=== PATIENT | female | born 1985 | race Caucasian/White ===

== ENCOUNTER 2018-04-08 10:23 | Observation (INO) | payer BC ==
[~2018-04-08 10:23] MED LIST: GLYCOPYRROLATE 1 MG/5 ML SYRINGE ONE; NEOSTIGMINE METHYLSULFATE 10 MG/10 ML VIAL ONE; SUCCINYLCHOLINE CHLORIDE INJ 200 MG/10 ML VIAL ONE; VECURONIUM BROMIDE INJ 10 MG VIAL IV ONE
[2018-04-08] MEDS ORDERED: FENTANYL CITRATE INJ/PF 100 MCG/2 ML AMPUL IV ONE (11:08)
--- NOTE | 2018-04-08 11:08 | ER Document Report ---
ED Medical Screen (RME) - General Chief Complaint: Abdominal Pain Stated Complaint: ABDOMINAL PAIN Time Seen by Provider: 04/08/18 10:59 Mode of Arrival: Ambulatory Information source: Patient Notes: 32-year-old female presents emergency department 3-day history of abdominal pain. She states that it is diffuse located throughout her entire abdomen. She describes it as a bloated sensation. She states that occasionally she will have intermittent sharp and stabbing pain located periumbilically. She states that curling up in a ball helps the pain. She denies any alleviating factors. Patient denies any nausea, vomiting, diarrhea, constipation, dysuria, hematuria , vaginal bleeding, vaginal discharge. Last menstrual period was 1 week ago. Patient went to her primary care physician yesterday and had blood work done. White blood cell count came back elevated. She was told to go to the emergency department for further imaging. I have greeted and performed a rapid initial assessment of this patient. A comprehensive ED assessment and evaluation of the patient, analysis of test results and completion of the medical decision making process will be conducted by additional ED providers. PHYSICAL EXAMINATION: GENERAL: Ill appearing. Bent over in pain. HEAD: Atraumatic, normocephalic. EYES: Pupils equal round extraocular movements intact, conjunctiva are normal. ENT: Nares patent NECK: Normal range of motion LUNGS: No respiratory distress Musculoskeletal: Normal range of motion NEUROLOGICAL: Normal speech, normal gait. PSYCH: Normal mood, normal affect. SKIN: Warm, Dry, normal turgor, no rashes or lesions noted. TRAVEL OUTSIDE OF THE [place] IN LAST 30 DAYS: No - HPI Onset: Other - 3 days - Related Data Allergies/Adverse Reactions: cefaclor [From Ceclor] Allergy (Severe, Verified 04/08/18 10:25) Anaphylaxis Penicillins Allergy (Severe, Verified 04/08/18 10:25) Anaphylaxis Past Medical History - Social History Chew tobacco use (# tins/day): No Frequency of alcohol use: Occasional Drug Abuse: None Endocrine Medical History: Comment Only: Hx Diabetes Mellitus Type 1 - hypoglycemia Renal/ Medical History: Denies: Hx Peritoneal Dialysis - Immunizations Hx Diphtheria, Pertussis, Tetanus Vaccination: Yes Physical Exam - Vital signs Vitals: Temp Pulse Resp BP Pulse Ox 98.4 F 132 H 20 140/103 H 100 04/08/18 10:29 04/08/18 10:29 04/08/18 10:29 04/08/18 10:29 04/08/18 10:29 Course - Vital Signs Vital signs: Temp Pulse Resp BP Pulse Ox 98.4 F 132 H 20 140/103 H 100 04/08/18 10:29 04/08/18 10:29 04/08/18 10:29 04/08/18 10:29 04/08/18 10:29 Doctor's Discharge - Discharge Referrals: KATI CAMPOS MD [Primary Care Provider] - Follow up as needed
[2018-04-08 12:09] LABS: ABSOLUTE BASOPHILS # (AUTO) 0.1 10^3/uL (0.0-0.2); ABSOLUTE EOSINOPHILS # (AUTO) 0.2 10^3/uL (0.0-0.6); ABSOLUTE LYMPHOCYTES (AUTO) 2.1 10^3/uL (0.5-4.7); ABSOLUTE NEUT (AUTO) 11.2 10^3/uL (1.7-8.2); BASOPHILS % (AUTO) 0.5 % (0-2); EOSINOPHILS % (AUTO) 1.7 % (0-6); LYMPHOCYTES % (AUTO) 14.7 % (13-45); MEAN CORPUSCULAR HEMOGLOBIN 34.4 pg (27.0-33.4); MEAN CORPUSCULAR VOLUME 98 fl (80-97); MONOCYTES % (AUTO) 6.6 % (3-13); PLATELET COUNT 339 10^3/uL (150-450); RED BLOOD COUNT 4.37 10^6/uL (3.72-5.28); RED CELL DISTRIBUTION WIDTH 12.5 % (11.5-14.0); SEGMENTED NEUTROPHILS % (AUTO) 76.5 % (42-78); TOTAL CELLS COUNTED % (AUTO) 100 %; WHITE BLOOD COUNT 14.6 10^3/uL (4.0-10.5)
[2018-04-08 12:21] LABS: APPEARANCE,URINE SLIGHTLY-CLOUDY; BILIRUBIN,URINE NEGATIVE (NEGATIVE); COLOR,URINE YELLOW; GLUCOSE, URINE NEGATIVE (NEGATIVE); KETONES,URINE NEGATIVE (NEGATIVE); LEUKOCYTE ESTERASE,URINE NEGATIVE (NEGATIVE); NITRITE,URINE NEGATIVE (NEGATIVE); PROTEIN,URINE 30 mg/dL (NEGATIVE); URINE SPECIFIC GRAVITY 1.025; UROBILINOGEN,URINE NEGATIVE mg/dL (<2.0)
[2018-04-08 12:33] LABS: ALANINE AMINOTRANSFERASE 13 U/L (9-52); ALBUMIN 4.9 g/dL (3.5-5.0); ALKALINE PHOSPHATASE 108 U/L (38-126); ANION GAP 11 (5-19); ASPARTATE AMINO TRANSFERASE 32 U/L (14-36); BILIRUBIN,DIRECT 0.4 mg/dL (0.0-0.4); BILIRUBIN,TOTAL 0.8 mg/dL (0.2-1.3); BLOOD UREA NITROGEN 9 mg/dL (7-20); CARBON DIOXIDE 31 mmol/L (22-30); CHLORIDE 102 mmol/L (98-107); GLUCOSE 78 mg/dL (75-110); LIPASE 59.2 U/L (23-300); POTASSIUM 4.7 mmol/L (3.6-5.0); SODIUM 143.7 mmol/L (137-145)
[2018-04-08] MEDS ORDERED: NORMAL SALINE 1000 ML 1,000 ML IV ONE (14:13)
--- NOTE | 2018-04-08 14:14 | RADIOLOGY REPORT (SQ) ---
EXAM DESCRIPTION: CT ABD/PELVIS WITH IV ONLY COMPLETED DATE/TIME: 04/08/2018 1:51 pm REASON FOR STUDY: abdominal pain COMPARISON: None. TECHNIQUE: CT scan of the abdomen and pelvis performed using helical scanning technique with dynamic intravenous contrast injection. No oral contrast. Images reviewed with lung, soft tissue, and bone windows. Reconstructed coronal and sagittal MPR images reviewed. Delayed images for evaluation of the urinary system also acquired. All images stored on PACS. All CT scanners at this facility use dose modulation, iterative reconstruction, and/or weight based d osing when appropriate to reduce radiation dose to as low as reasonably achievable (ALARA). [facility]: Dose Right [facility]: CareDose [facility]: Dose Right [facility]: Teradose 4D [facility]: Domo Safety CONTRAST TYPE AND DOSE: contrast/concentration: Isovue 350.00 mg/ml; Total Contrast Delivered: 76.0 ml; Total Saline Delivered: 59.0 ml RENAL FUNCTION: GFR > 60. RADIATION DOSE: CT Rad equipment meets quality standard of care and radiation dose reduction techniq ues were employed. CTDIvol: 7.6 - 10.5 mGy. DLP: 936 mGy-cm.. LIMITATIONS: None. FINDINGS: LOWER CHEST: No significant findings. No nodules or infiltrates. LIVER: Normal size. No masses. No dilated ducts. SPLEEN: Normal size. No focal lesions. PANCREAS: No masses. No significant calcifications. No adjacent inflammation or peripancreatic fluid collections. Pancreatic duct not dilated. GALLBLADDER: No identified stones by CT criteria. No inflammatory changes to suggest cholecystitis. ADRENAL GLANDS: No significant masses or asymmetry. RIGHT KIDNEY AND URETER: No solid masses. No significant calcifications. No hydronephrosis or hyd roureter. LEFT KIDNEY AND URETER: No solid masses. No significant calcifications. No hydronephrosis or hydr oureter. AORTA AND VESSELS: No aneurysm. No dissection. Renal arteries, SMA, celiac without stenosis. RETROPERITONEUM: No retroperitoneal adenopathy, hemorrhage or masses. BOWEL AND PERITONEAL CAVITY: Inflammatory changes in the right lower quadrant with suspected dilated appendix series 3, image 60. No free air or ascites. APPENDIX: See above. PELVIS: No mass. No free fluid. Normal bladder. ABDOMINAL WALL: No masses. No hernias. BONES: No significant or acute findings. OTHER: No other significant finding. IMPRESSION: Suspect acute appendicitis. Inflammatory bowel disease considered in the differential. Surgical consultation is recommended. TECHNICAL DOCUMENTATION: JOB ID: [id number] Quality ID # [id number]: Final reports with documentation of one or more dose reduction techniques (e.g., Au tomated exposure control, adjustment of the mA and/or kV according to patient size, use of iterative reconstruction technique) 2010 [employer]- All Rights Reserved Reading location - IP/workstation name: [email or web address] [id number]
[2018-04-08] MEDS ORDERED: ONDANSETRON HCL INJ/PF 4 MG/2 ML SDV IV ONE (14:25)
[2018-04-08] MEDS ORDERED: MORPHINE SULFATE 10 MG/ML INJ IV ONE (14:25)
--- NOTE | 2018-04-08 14:29 | ER Document Report ---
ED General - General Chief Complaint: Abdominal Pain Stated Complaint: ABDOMINAL PAIN Time Seen by Provider: 04/08/18 10:59 Mode of Arrival: Ambulatory Notes: Patient is a 32-year-old female that presents to the emergency department for chief complaint of abdominal pain. Patient states the pain started Thursday, and has been persistent and seemingly worsening over time. The pain is located generally in the middle of the abdomen, but also worse in the right lower quadrant, and they currently rate the pain as a 6 out of 10, and scribed as aching, and constant, and occasionally sharp. They have had associated nausea, without vomiting, denies dysuria or hematuria. Past Medical History: Denies chronic medical conditions Past Surgical History: Nasal surgery Social History: Admits to occasional alcohol use, admits to smoking cigarettes, denies illicit drug use Family History: Reviewed and noncontributory for presenting illness Allergies: Reviewed, see documented allergy list. REVIEW OF SYSTEMS: Unless otherwise stated in this report the patient's positive and negative responses for review of systems for constitutional, eyes, ENT, cardiovascular, respiratory, gastrointestinal, neurological, genitourinary, musculoskeletal, and integumentary systems and related systems to the presenting problem are either as stated in the HPI or were not pertinent or were negative for the symptoms and/or complaints related to the presenting medical problem. PHYSICAL EXAMINATION: Vital signs reviewed, nursing noted reviewed. GENERAL: Well-appearing, well-nourished and appears uncomfortable HEAD: Atraumatic, normocephalic. EYES: Eyes appear normal, extraocular movements intact, sclera anicteric, conjunctiva are normal. ENT: nares patent, oropharynx clear without exudates. Moist mucous membranes. NECK: Normal range of motion, supple without lymphadenopathy LUNGS: Breath sounds clear to auscultation bilaterally and equal. No wheezes rales or rhonchi. HEART: Heart rate tachycardic, regular rhythm ABDOMEN: Soft, normal bowel sounds, tenderness with palpation, No rebound, guarding, or rigidity. No masses appreciated. EXTREMITIES: Nontender, good range of motion, no pitting or edema. NEUROLOGICAL: No focal neurological deficits. Moves all extremities spontaneously Motor and sensory grossly intact on exam. PSYCH: Normal mood, normal affect. SKIN: Warm, Dry, normal turgor, no rashes or lesions noted on exposed skin TRAVEL OUTSIDE OF THE [place] IN LAST 30 DAYS: No - Related Data Allergies/Adverse Reactions: cefaclor [From Ceclor] Allergy (Severe, Verified 04/08/18 10:25) Anaphylaxis Penicillins Allergy (Severe, Verified 04/08/18 10:25) Anaphylaxis Past Medical History - General Information source: Patient - Social History Smoking Status: Current Every Day Smoker Chew tobacco use (# tins/day): No Frequency of alcohol use: Occasional Drug Abuse: None Family History: Reviewed & Not Pertinent Patient has suicidal ideation: No Patient has homicidal ideation: No Endocrine Medical History: Comment Only: Hx Diabetes Mellitus Type 1 - hypoglycemia Renal/ Medical History: Denies: Hx Peritoneal Dialysis - Immunizations Hx Diphtheria, Pertussis, Tetanus Vaccination: Yes Physical Exam - Vital signs Vitals: Temp Pulse Resp BP Pulse Ox 98.4 F 132 H 20 140/103 H 100 04/08/18 10:29 04/08/18 10:29 04/08/18 10:29 04/08/18 10:29 04/08/18 10:29 Course - Re-evaluation Re-evalutation: Patient seen and examined vital signs reviewed. Laboratory data and imaging were ordered as appropriate for the patient's presenting symptoms and complaint, with consideration of any critical or life threatening conditions that may be associated with their obtained history and exam as noted above. Patient was treated with IV fluids, fentanyl for pain, and morphine and Zofran Results were reviewed when available and demonstrated leukocytosis, and CT imaging, concerning for acute appendicitis The patient was re-evaluated and was having pain, surgery was consulted, and came to see the patient, and they will take her to the OR. Evaluation was most consistent with acute appendicitis Results were discussed with the patient at this point after careful consideration I feel that that patient should be admitted to the hospital. This was discussed with the patient that it is in the best interest for their care to be admitted for further evaluation and management. Patient agreed with this plan of care. A call was placed to the admitted physician, Dr. Rodriguez who graciously accepted the patient onto their service, and will take her to the OR for appendectomy. *Note is created using voice recognition software and may contain spelling, syntax or grammatical errors. Laboratory 04/08/18 04/08/18 04/08/18 11:40 11:40 11:40 WBC 14.6 H RBC 4.37 Hgb 15.0 Hct 43.0 MCV 98 H MCH 34.4 H MCHC 35.0 RDW 12.5 Plt Count 339 Seg Neutrophils % 76.5 Lymphocytes % 14.7 Monocytes % 6.6 Eosinophils % 1.7 Basophils % 0.5 Absolute Neutrophils 11.2 H Absolute Lymphocytes 2.1 Absolute Monocytes 1.0 Absolute Eosinophils 0.2 Absolute Basophils 0.1 Sodium 143.7 Potassium 4.7 Chloride 102 Carbon Dioxide 31 H Anion Gap 11 BUN 9 Creatinine 0.51 L Est GFR ( Amer) > 60 Est GFR (Non-Af Amer) > 60 Glucose 78 Calcium 9.0 Total Bilirubin 0.8 Direct Bilirubin 0.4 Neonat Total Bilirubin Not Reportable Neonat Direct Bilirubin Not Reportable Neonat Indirect Bili Not Reportable AST 32 ALT 13 Alkaline Phosphatase 108 Total Protein 9.0 H Albumin 4.9 Lipase 59.2 Urine Color YELLOW Urine Appearance SLIGHTLY-CLOUDY Urine pH 7.0 Ur Specific [place] 1.025 Urine Protein 30 H Urine Glucose (UA) NEGATIVE Urine Ketones NEGATIVE Urine Blood NEGATIVE Urine Nitrite NEGATIVE Urine Bilirubin NEGATIVE Urine Urobilinogen NEGATIVE Ur Leukocyte Esterase NEGATIVE Urine WBC (Auto) 2 Urine RBC (Auto) 4 Squamous Epi Cells Auto 3 Urine Mucus (Auto) FEW Urine Ascorbic Acid NEGATIVE Urine HCG, Qual NEGATIVE Abdomen/Pelvis CT 04/08/18 11:09 IMPRESSION: Suspect acute appendicitis. Inflammatory bowel disease considered in the differential. Surgical consultation is recommended. - Vital Signs Vital signs: Temp Pulse Resp BP Pulse Ox 98.1 F 58 L 16 95/58 L 98 04/08/18 18:38 04/08/18 18:38 04/08/18 18:38 04/08/18 18:38 04/08/18 18:38 - Laboratory Result Diagrams: 04/08/18 11:40 04/08/18 11:40 Laboratory results interpreted by me: 04/08/18 04/08/18 04/08/18 11:40 11:40 11:40 WBC 14.6 H MCV 98 H MCH 34.4 H Absolute Neutrophils 11.2 H Carbon Dioxide 31 H Creatinine 0.51 L Total Protein 9.0 H Urine Protein 30 H Discharge - Discharge Clinical Impression: Acute appendicitis Qualifiers: Acute appendicitis type: unspecified acute appendicitis type Qualified Code(s) : K35.80 - Unspecified acute appendicitis Leukocytosis Qualifiers: Leukocytosis type: unspecified Qualified Code(s): D72.829 - Elevated white blood cell count, unspecified Condition: Stable Disposition: ADMITTED INPATIENT Admitting Provider: Surgicalist - Dr. Rodriguez Unit Admitted: Surgical Floor
[2018-04-08] MEDS ORDERED: METRONIDAZOLE 500 MG/NS RTU 500 MG/100 ML RTUPB IV ONE (15:15)
[2018-04-08] MEDS ORDERED: DEXTROSE 5%-LACTATED RINGERS 1,000 ML IV PRN (15:22)
[2018-04-08] MEDS ORDERED: ONDANSETRON HCL INJ/PF 4 MG/2 ML SDV IV PRN ×2 (15:22→17:09)
--- NOTE | 2018-04-08 15:22 | PDOC H&P ---
History of Present Illness Patient complains of: Severe abdominal pain, unrelenting History of Present Illness: JB OQUENDO is a 32 year old female with a 3-day history of abdominal pain. It began as periumbilical, and intensified. It moved to the right lower quadrant. Pain now encompasses the entire abdomen. She is most painful in her right lower quadrant. Patient reports subjective fevers and chills. Her pain is 10 out of 10. Nothing makes it better. Palpation makes it worse. She denies nausea, vomiting, melena, hematochezia, hematemesis, constipation, diarrhea, vaginal discharge, blurry vision, vaginal bleeding. Past Medical History Cardiac Medical History: Reports: Hypertension Endocrine Medical History: Comment Only: Diabetes Mellitus Type 1 - hypoglycemia Past Surgical History Past Surgical History: Reports: Other - Nasal surgery Social History Smoking Status: Current Every Day Smoker Frequency of Alcohol Use: Heavy Hx Recreational Drug Use: No Hx Prescription Drug Abuse: No Family History Parental Family History Reviewed: Yes Children Family History Reviewed: Yes Sibling(s) Family History Reviewed.: Yes Medication/Allergy Home Medications: Lamotrigine [Lamotrigine] 100 mg PO DAILY 04/08/18 Allergies/Adverse Reactions: cefaclor [From Ceclor] Allergy (Severe, Verified 04/08/18 10:25) Anaphylaxis Penicillins Allergy (Severe, Verified 04/08/18 10:25) Anaphylaxis Review of Systems Constitutional: PRESENT: chills, fatigue, fever(s) Eyes: ABSENT: visual disturbances Ears: ABSENT: hearing changes Cardiovascular: ABSENT: chest pain Respiratory: ABSENT: cough, dyspnea Gastrointestinal: PRESENT: abdominal pain. ABSENT: hematemesis, hematochezia, nausea, vomiting Genitourinary: ABSENT: dysuria Musculoskeletal: ABSENT: back pain Integumentary: ABSENT: pruritus, rash Neurological: ABSENT: confusion, convulsions, dizziness Psychiatric: ABSENT: anxiety, depression Endocrine: ABSENT: cold intolerance, heat intolerance Hematologic/Lymphatic: ABSENT: easy bleeding, easy bruising Physical Exam Vital Signs: Temp Pulse Resp BP Pulse Ox 98.4 F 132 H 20 140/103 H 100 04/08/18 10:29 04/08/18 10:29 04/08/18 10:29 04/08/18 10:29 04/08/18 10:29 Intake & Output 04/07/18 04/08/18 04/09/18 06:59 06:59 06:59 Weight 70 kg General appearance: PRESENT: mild distress - Nominal pain Head exam: PRESENT: atraumatic, normocephalic Eye exam: PRESENT: EOMI, PERRLA. ABSENT: scleral icterus Mouth exam: PRESENT: moist, neck supple Teeth exam: ABSENT: poor dentation Neck exam: ABSENT: meningismus, tenderness, thyromegaly, tracheal deviation Respiratory exam: PRESENT: clear to auscultation allie, unlabored. ABSENT: chest wall tenderness, wheezes Cardiovascular exam: PRESENT: RRR Pulses: PRESENT: normal radial pulses Vascular exam: PRESENT: normal capillary refill. ABSENT: pallor GI/Abdominal exam: PRESENT: guarding - Right lower quadrant, rebound, soft, tenderness. ABSENT: distended Extremities exam: ABSENT: clubbing, pedal edema Musculoskeletal exam: ABSENT: deformity Neurological exam: PRESENT: alert, awake, oriented to person, oriented to place , oriented to time, oriented to situation Psychiatric exam: ABSENT: agitated, anxious, depressed Focused psych exam: ABSENT: delusional Skin exam: ABSENT: cyanosis, erythema, jaundice Results Laboratory Results: 04/08/18 11:40 04/08/18 11:40 04/08/18 04/08/18 04/08/18 11:40 11:40 11:40 WBC 14.6 H RBC 4.37 Hgb 15.0 Hct 43.0 MCV 98 H MCH 34.4 H MCHC 35.0 RDW 12.5 Plt Count 339 Seg Neutrophils % 76.5 Lymphocytes % 14.7 Monocytes % 6.6 Eosinophils % 1.7 Basophils % 0.5 Absolute Neutrophils 11.2 H Absolute Lymphocytes 2.1 Absolute Monocytes 1.0 Absolute Eosinophils 0.2 Absolute Basophils 0.1 Sodium 143.7 Potassium 4.7 Chloride 102 Carbon Dioxide 31 H Anion Gap 11 BUN 9 Creatinine 0.51 L Est GFR ( Amer) > 60 Est GFR (Non-Af Amer) > 60 Glucose 78 Calcium 9.0 Total Bilirubin 0.8 AST 32 ALT 13 Alkaline Phosphatase 108 Total Protein 9.0 H Albumin 4.9 Lipase 59.2 Urine Color YELLOW Urine Appearance SLIGHTLY-CLOUDY Urine pH 7.0 Ur Specific [place] 1.025 Urine Protein 30 H Urine Glucose (UA) NEGATIVE Urine Ketones NEGATIVE Urine Blood NEGATIVE Urine Nitrite NEGATIVE Ur Leukocyte Esterase NEGATIVE Urine WBC (Auto) 2 Urine RBC (Auto) 4 Impressions: Abdomen/Pelvis CT 04/08/18 11:09 IMPRESSION: Suspect acute appendicitis. Inflammatory bowel disease considered in the differential. Surgical consultation is recommended. Assessment & Plan - Diagnosis (1) Appendicitis Qualifiers: Appendicitis type: acute appendicitis Acute appendicitis type: unspecified acute appendicitis type Qualified Code(s): K35.80 - Unspecified acute appendicitis Is this a current diagnosis for this admission?: Yes - Plan Summary Plan Summary: This is a 32-year-old female with acute appendicitis. She has right lower quadrant pain, rebound tenderness, leukocytosis, and evidence of appendicitis on CT scan. I have reviewed her CT images and report personally. There is inflammatory stranding in the right lower quadrant with a dilated appendix. I have recommended laparoscopic appendectomy as treatment. The patient has agreed to this. Risks/benefits discussed, informed consent obtained, and all questions answered.
[2018-04-08] MEDS ORDERED: CIPROFLOXACIN 400 MG/D5W RTU 400 MG/200 ML RTUPB IV ONE (15:30)
[2018-04-08] MEDS ORDERED: MIDAZOLAM 2 MG/2 ML INJ ONE (16:12)
[2018-04-08] MEDS ORDERED: KETOROLAC TROMETHAMINE 60 MG/2 ML SDV ONE (16:12)
[2018-04-08] MEDS ORDERED: FENTANYL CITRATE INJ/PF 100 MCG/2 ML AMPUL ONE (16:12)
[2018-04-08] MEDS ORDERED: ACETAMINOPHEN 1,000 MG/100 ML RTUPB IV ONE (16:13)
[2018-04-08] MEDS ORDERED: DEXAMETHASONE SOD PHOSPHATE INJ 4 MG/1 ML VIAL ONE (16:13)
[2018-04-08] MEDS ORDERED: EPHEDRINE SULFATE INJ 50 MG/1 ML AMPULE ONE (16:13)
[2018-04-08] MEDS ORDERED: PROPOFOL INJ 200 MG/20 ML VIAL IV ONE (16:13)
[2018-04-08] MEDS ORDERED: ONDANSETRON HCL INJ/PF 4 MG/2 ML SDV ONE (16:13)
[2018-04-08] MEDS ORDERED: BUPIVACAINE HCL 0.5 % INJ/PF 30 ML SDV ONE (16:37)
[2018-04-08] MEDS ORDERED: PROMETHAZINE HCL INJ 25 MG/1 ML VIAL IV PRN ×2 (17:09)
[2018-04-08] MEDS ORDERED: MEPERIDINE HCL/PF INJ 25 MG/1 ML DISP.SYRIN IV PRN (17:09)
[2018-04-08] MEDS ORDERED: FENTANYL CITRATE INJ/PF 100 MCG/2 ML AMPUL IV PRN ×3 (17:09)
[2018-04-08] MEDS ORDERED: DIPHENHYDRAMINE HCL 50 MG/ML VIAL IV PRN (17:09)
[2018-04-08] MEDS ORDERED: OXYCODONE-ACETAMINOPHEN 5-325 MG TABLET PO PRN ×2 (17:09)
[2018-04-08] MEDS ORDERED: MORPHINE SULFATE 10 MG/ML INJ IV PRN (17:09)
--- NOTE | 2018-04-08 17:47 | Operative Report ---
Nonrecallable Operative Report DATE OF SURGERY: 04/08/18 PREOPERATIVE DIAGNOSIS: Acute appendicitis POSTOPERATIVE DIAGNOSIS: Acute appendicitis OPERATION: Laparoscopic appendectomy SURGEON: YUNIER HENDERSON ANESTHESIA: GA TISSUE REMOVED OR ALTERED: Appendix COMPLICATIONS: None apparent ESTIMATED BLOOD LOSS: Minimal PROCEDURE: Drains/implants: None. Procedure in detail: After informed consent was obtained, the patient was brought to the operating room and laid in the supine position. The area of the abdomen was prepped and draped in normal sterile fashion. A supraumbilical incision was created with a 15 blade scalpel. Dissection was carried through the subcutaneous tissue using sharp and blunt dissection. The cicatrix was identified, grasped with a Flaquita clamp, and retracted upwards. The linea alba fascia was incised sharply, the abdomen was entered sharply. The balloon trocar was inserted, and pneumoperitoneum was achieved. A suprapubic 5 mm port was placed under direct laparoscopic visualization. Another left lower quadrant 5 mm port was placed in similar fashion. Atraumatic graspers were placed through the 5 mm ports. The appendix was identified. It was injected, inflamed, and adherent to some of the surrounding structures in the right pelvis. The appendix was bluntly dissected free of the right pelvic sidewall and small intestine. There was a mild amount of seropurulent fluid present, but no obvious perforation. The appendix was elevated. The mesoappendix was taken down using the harmonic scalpel. PDS Endoloops were used to secure the base of the appendix x2. The appendix was then amputated using the harmonic scalpel. The appendix was placed into an Endo Catch bag and pulled out through the umbilicus. The camera was reinserted. A small amount of blood was suctioned from the right lower quadrant. There was no active bleeding identified. No irrigation was used. The 5 mm trochars were removed under direct laparoscopic visualization. The supraumbilical trocar was removed, and pneumoperitoneum was relieved. The supraumbilical fascia was closed using 0 Vicryl suture in [id number] fashion. The overlying skin was closed using 4-0 Vicryl Rapide suture in subcuticular fashion. All sponge, instrument, needle counts were correct x2. Condition: Stable.
[2018-04-08] MEDS: HYDROCODONE/ACETAMINOPHEN 5-325 MG TABLET PO PRN (21:11)
[2018-04-08] MEDS: FAMOTIDINE 20 MG TABLET PO SCH (21:11)
[2018-04-08] MEDS: MORPHINE SULFATE 10 MG/ML INJ IV PRN (22:17)
[2018-04-08] MEDS: METRONIDAZOLE 500 MG/NS RTU 500 MG/100 ML RTUPB IV SCH (23:18)
[2018-04-09] MEDS: KETOROLAC TROMETHAMINE INJ/PF 30 MG/1 ML SDV IV SCH ×3 (01:07→18:27)
[2018-04-09] MEDS: MORPHINE SULFATE 10 MG/ML INJ IV PRN ×3 (02:17→20:47)
[2018-04-09] MEDS: METRONIDAZOLE 500 MG/NS RTU 500 MG/100 ML RTUPB IV SCH ×4 (05:30→23:22)
[2018-04-09] MEDS: HYDROCODONE/ACETAMINOPHEN 5-325 MG TABLET PO PRN ×2 (05:31→16:34)
[2018-04-09] MEDS: CIPROFLOXACIN 400 MG/D5W RTU 400 MG/200 ML RTUPB IV SCH ×2 (06:32→19:34)
--- NOTE | 2018-04-09 08:53 | PDOC PROGRESS REPORT ---
Subjective Progress Note for:: 04/09/18 Subjective:: Abdominal pains but less than pre-op. Surgery related with incisional and shoulder pains. Has flatus. Reason For Visit: ACUTE APPENDICITIS Physical Exam Vital Signs: Temp Pulse Resp BP Pulse Ox 97.9 F 61 16 101/61 97 04/09/18 07:58 04/09/18 07:58 04/09/18 07:58 04/09/18 07:58 04/09/18 07:58 Intake & Output 04/08/18 04/09/18 04/10/18 06:59 06:59 06:59 Intake Total 1250 Output Total 805 Balance 445 Weight 71.2 kg Exam: Abd is soft with mild diffuse tenderness. Results Impressions: Abdomen/Pelvis CT 04/08/18 11:09 IMPRESSION: Suspect acute appendicitis. Inflammatory bowel disease considered in the differential. Surgical consultation is recommended. Assessment & Plan - Time Time Spent with patient: 15-24 minutes - Inpatient Certification Medical Necessity: Need for Pain Control, Need for IV Antibiotics, Risk of Complication if Not Cared For in Hospital - Plan Summary Plan Summary: Continue IV antibiotics Gradually increase diet and activity Repeat CBC in am. If remains afebrile, WBC normal and tolerating diet will discharge tomorrow.
[2018-04-09] MEDS: FAMOTIDINE 20 MG TABLET PO SCH ×2 (10:34→21:28)
[2018-04-10] MEDS ORDERED: PHENOL/SODIUM PHENOLATE 100 SPRAY/177 ML BOTTLE ONE (00:52)
[2018-04-10] MEDS: KETOROLAC TROMETHAMINE INJ/PF 30 MG/1 ML SDV IV SCH ×2 (01:02→09:38)
[2018-04-10] MEDS: MORPHINE SULFATE 10 MG/ML INJ IV PRN (04:31)
[2018-04-10] MEDS: CIPROFLOXACIN 400 MG/D5W RTU 400 MG/200 ML RTUPB IV SCH (05:41)
[2018-04-10] MEDS: PHENOL/SODIUM PHENOLATE 100 SPRAY/177 ML BOTTLE PO PRN ×2 (05:43→12:07)
[2018-04-10] MEDS: METRONIDAZOLE 500 MG/NS RTU 500 MG/100 ML RTUPB IV SCH ×2 (08:11→12:24)
[2018-04-10] MEDS: FAMOTIDINE 20 MG TABLET PO SCH (09:38)
[2018-04-10 12:44] VITALS: BP 119/61
[2018-04-10] MEDS: HYDROCODONE/ACETAMINOPHEN 5-325 MG TABLET PO PRN (15:15)
--- NOTE | 2018-04-11 18:06 | DISCHARGE SUMMARY E ---
Discharge Summary NAME: JB OQUENDO : 1985 AGE: 32Y ADMITTED: 04/08/2018 DISCHARGED: 04/10/2018 OPERATION: Laparoscopic appendectomy 04/08/2018, surgeon Dr. Rodriguez. FINAL DIAGNOSIS: ACUTE APPENDICITIS HOSPITAL COURSE: This is a 32-year-old female who was admitted for acute appendicitis and underwent laparoscopic appendectomy on 04/08/[address] Rodriguez. It was an inflamed appendix but no definite perforation. Postoperatively patient gradually improved and on the day of discharge was able to have a bowel movement and pass gas and tolerating soft diet. She was then discharged improved on 04/10/2018 with a final diagnosis of acute appendicitis. She was given a prescription for Tramadol 50 mg p.o. every 6 hours p.r.n. for pain. She remained afebrile after the surgery. Her incisions look good and the abdomen is soft and nontender on the day of discharge. Patient is to be followed up in the Surgical Clinic in about [address] Rodriguez. DICTATING PHYSICIAN: UYEN DENNY M.D. [id number] PHY#: [id number] ID: [id number] JOB#: [id number] ACCT: [id number] cc:Sivakumar SMITH MD, M.D. [facility]
== END 2018-04-10 16:45 | disposition home or self-care (01) ==
LOC: ER 10:23 → INTOOBSV 15:52 → EH 15:52 → 2N 18:44
PROVIDERS: ATTEND Surgery
PROC: 0DTJ4ZZ Resection of Appendix, Percutaneous Endoscopic Approach (ICD-10-PCS; principal; 2018-04-08 17:15)
DX: K35.32 Acute appendicitis with perforation, localized peritonitis, and gangrene, without abscess (principal); R14.3 Flatulence; M25.519 Pain in unspecified shoulder; F17.210 Nicotine dependence, cigarettes, uncomplicated; G89.18 Other acute postprocedural pain; R00.0 Tachycardia, unspecified; E10.649 Type 1 diabetes mellitus with hypoglycemia without coma
CPT/HCPCS: 44970; 99285; 96361; 96374; 96375; 36415; 83690; 85025; 81025; 80053; 81001; 88304 ×2; 74177; 94799; G0378 ×4; J2250; J3490 ×4; J1100; J1885 ×3; J3010; J2270 ×3; J0330; J2405; J7030; J2704; J0744 ×3; J0131; 840